=== PATIENT | male | born 1935 | race African-American/Black ===

== ENCOUNTER 2022-06-02 00:32 | Inpatient (IN) | payer MEDICARE, OTHER ==
[2022-06-02] MEDS ORDERED: hydrALAZINE 20 MG/ML VIAL SLOW IVP PRN (01:36)
[2022-06-02] MEDS ORDERED: Ondansetron ODT 4 MG TAB PO PRN (01:52)
[2022-06-02] MEDS ORDERED: Ondansetron PF 4 MG/2 ML Vial IVP PRN (01:52)
[2022-06-02] MEDS ORDERED: Acetaminophen 325 MG TAB PO PRN (01:52)
[2022-06-02] MEDS ORDERED: Acetaminophen 650 MG Suppository PR PRN (01:52)
[2022-06-02] MEDS ORDERED: Azithromycin 500 MG in Sodium Chloride 0.9% 250 ML 250 ML IVPB SCH (04:00)
[2022-06-02 04:54] LABS: Iron Binding Capacity, Total 234 mcg/dL (261-462)
[2022-06-02 04:58] LABS: Troponin I 0.268 ng/mL (< 0.028)
[2022-06-02 05:00] LABS: Anion Gap 15 mmol/L (10-20); BUN (Urea Nitrogen) 13 mg/dL (8.4-25.7); Calc. Creatinine Clearance 36 mL/min (70-130); Calcium 8.8 mg/dL (7.8-10.44); Carbon Dioxide 23 mmol/L (23-31); Chloride 105 mmol/L (98-107); Estimated GFR 59; Glucose 124 mg/dL (83-110); Iron 38 ug/dL (65-175); Iron Binding Capacity, Total 235 mcg/dL (261-462); Potassium 3.4 mmol/L (3.5-5.1); Sodium 140 mmol/L (136-145)
[2022-06-02 05:20] LABS: Ferritin 77.44 ng/mL (22-322)
[2022-06-02 05:56] LABS: Iron 38 ug/dL (65-175)
[2022-06-02 06:28] LABS: Band 4 % (5-11); Eosinophils 1 % (0-10); Hemoglobin 10.1 g/dL (14.0-18.0); Lymphocytes 16 % (21-51); MDiff Complete? YES; Mean Corpuscular HGB CONC 30.9 g/dL (32.0-36.0); Mean Platelet Volume 9.2 fL (7.4-10.4); Monocytes 8 % (0-10); Neutrophil 71 % (42-75); Platelet Count 111 thou/uL (130-400); Platelet Morphology Comment Appears Decreased; RBC Distribution Width 15.2 % (11.5-14.5); Red Blood Cell (RBC) Count 3.17 mill/uL (4.70-6.10); White Blood Cell (WBC) Count 5.1 thou/uL (4.8-10.8)
[2022-06-02] MEDS ORDERED: Cefepime 2 GM in Sodium Chloride 0.9% 100 ML IVPB SCH (08:00)
[2022-06-02] MEDS ORDERED: Losartan 25 MG TAB PO SCH (09:00)
[2022-06-02] MEDS: Enoxaparin Sodium 40 MG/0.4 ML SYRINGE SC SCH (09:28)
[2022-06-02] MEDS: Carvedilol 25 MG TAB PO SCH ×2 (09:29→16:41)
[2022-06-02] MEDS: Gabapentin 300 MG CAP PO SCH ×2 (09:29→20:57)
[2022-06-02] MEDS: Furosemide 100 MG/10 ML VIAL SLOW IVP SCH (09:29)
[2022-06-02] MEDS: hydrALAZINE 25 MG TAB PO SCH ×3 (09:29→20:58)
[2022-06-02] MEDS ORDERED: HYDROcodone/Acetaminophen 5/325 mg Tablet PO PRN (20:05)
[2022-06-02] MEDS: HYDROcodone/Acetaminophen 5/325 mg Tablet PO PRN (20:55)
[2022-06-02] MEDS: Rosuvastatin 10 MG TAB PO SCH (20:57)
[2022-06-03] MEDS: Enoxaparin Sodium 40 MG/0.4 ML SYRINGE SC SCH (08:57)
[2022-06-03] MEDS: Gabapentin 300 MG CAP PO SCH ×2 (08:57→21:36)
[2022-06-03] MEDS: Carvedilol 25 MG TAB PO SCH ×2 (08:57→17:23)
[2022-06-03] MEDS: hydrALAZINE 25 MG TAB PO SCH ×3 (08:58→21:35)
[2022-06-03] MEDS: Sacubitril 49 MG/Valsartan 51 MG TABLET PO SCH ×2 (08:58→21:35)
[2022-06-03] MEDS: HYDROcodone/Acetaminophen 5/325 mg Tablet PO PRN (08:59)
[2022-06-03] MEDS: Furosemide 100 MG/10 ML VIAL SLOW IVP SCH (09:08)
[2022-06-03] MEDS: Aspirin 81 mg Enteric Coated Tablet PO SCH (09:52)
[2022-06-03 10:02] LABS: Anion Gap 16 mmol/L (10-20); BUN (Urea Nitrogen) 15 mg/dL (8.4-25.7); Calc. Creatinine Clearance 30 mL/min (70-130); Calcium 8.4 mg/dL (7.8-10.44); Carbon Dioxide 29 mmol/L (23-31); Chloride 100 mmol/L (98-107); Estimated GFR 47; Glucose 106 mg/dL (83-110); Sodium 142 mmol/L (136-145)
[2022-06-03 10:19] LABS: Potassium 2.9 mmol/L (3.5-5.1)
[2022-06-03] MEDS: Potassium Chloride 20 MEQ TAB PO SCH ×2 (11:27→17:23)
[2022-06-03] MEDS: Furosemide 80 MG TAB PO SCH (13:50)
[2022-06-03] MEDS ORDERED: Amlodipine 10 MG TAB PO SCH (17:15)
[2022-06-03] MEDS: Rosuvastatin 10 MG TAB PO SCH (21:35)
[2022-06-04 03:06] LABS: #Eosinphils 0.1 thou/uL (0.0-0.7); #Lymphocytes 0.7 thou/uL (1.20-3.40); #Monocytes 0.7 thou/uL (0.11-0.59); #Neutrophils 3.7 thou/uL (1.40-6.50); %Basophils 0.7 % (0.0-1.0); %Eosinophils 1.2 % (0.0-10.0); %Lymphocytes 13.6 % (21.0-51.0); %Monocytes 12.9 % (0.0-10.0); %Neutrophils 71.6 % (42.0-75.0); Hemoglobin 9.5 g/dL (14.0-18.0); Mean Corpuscular HGB CONC 31.9 g/dL (32.0-36.0); Mean Corpuscular Hemoglobin 33.1 pg (27.0-31.0); Mean Platelet Volume 7.8 fL (7.4-10.4); Platelet Count 126 thou/uL (130-400); Red Blood Cell (RBC) Count 2.87 mill/uL (4.70-6.10); White Blood Cell (WBC) Count 5.2 thou/uL (4.8-10.8)
[2022-06-04 03:33] LABS: Troponin I 0.192 ng/mL (< 0.028)
[2022-06-04 03:38] LABS: Anion Gap 16 mmol/L (10-20); BUN (Urea Nitrogen) 19 mg/dL (8.4-25.7); Calc. Creatinine Clearance 26 mL/min (70-130); Calcium 8.4 mg/dL (7.8-10.44); Carbon Dioxide 25 mmol/L (23-31); Cardiac Risk 2.8 (Less than 4.5); Chloride 101 mmol/L (98-107); Cholesterol 147 mg/dl (< 200 Desired); Estimated GFR 39; Glucose 120 mg/dL (83-110); HDL Cholesterol 53 mg/dL (>60 Neg Risk); LDL Cholesterol, Calculated 83 mg/dL; Magnesium 1.5 mg/dL (1.6-2.6); Potassium 3.5 mmol/L (3.5-5.1); Sodium 138 mmol/L (136-145); Triglycerides 57 mg/dL (Less than 150)
[2022-06-04] MEDS: Magnesium 2 GM/50 ML(in water) 2 GM in Premix Bag 1 BAG IVPB SCH ×2 (05:20→06:17)
[2022-06-04] MEDS ORDERED: Electrolyte Replacement Protocol FS PRN (06:15)
[2022-06-04] MEDS ORDERED: Potassium Chloride 20 MEQ TAB PO SCH (08:00)
[2022-06-04] MEDS: Gabapentin 300 MG CAP PO SCH ×2 (09:24→21:09)
[2022-06-04] MEDS: Sacubitril 49 MG/Valsartan 51 MG TABLET PO SCH ×2 (09:24→21:08)
[2022-06-04] MEDS: Aspirin 81 mg Enteric Coated Tablet PO SCH (09:25)
[2022-06-04] MEDS: hydrALAZINE 25 MG TAB PO SCH ×3 (09:25→21:08)
[2022-06-04] MEDS: Carvedilol 25 MG TAB PO SCH ×3 (09:25→21:08)
[2022-06-04] MEDS: Magnesium Oxide 400 MG TAB PO SCH ×2 (09:25→12:31)
[2022-06-04] MEDS: Enoxaparin Sodium 30 MG/0.3 ML SYRINGE SC SCH (09:26)
[2022-06-04] MEDS: Furosemide 80 MG TAB PO SCH (09:27)
[2022-06-04] MEDS ORDERED: Rosuvastatin 20 MG TAB PO SCH (21:00)
[2022-06-05] MEDS ORDERED: cefTRIAXone\\ROCEPHIN 1 GM in Sodium Chloride 0.9% 100 ML IVPB SCH (03:00)
[2022-06-05 04:38] LABS: Anion Gap 14 mmol/L (10-20); BUN (Urea Nitrogen) 19 mg/dL (8.4-25.7); Calc. Creatinine Clearance 26 mL/min (70-130); Carbon Dioxide 26 mmol/L (23-31); Chloride 102 mmol/L (98-107); Estimated GFR 35; Glucose 98 mg/dL (83-110); Potassium 3.6 mmol/L (3.5-5.1); Sodium 138 mmol/L (136-145)
[2022-06-05 04:40] LABS: Anisocytosis SLIGHT = 6-15 cells (100X) (0-5/hpf); Eosinophils 5 % (0-10); Hemoglobin 8.7 g/dL (14.0-18.0); Lymphocytes 13 % (21-51); MDiff Complete? YES; Macrocytosis MODERATE=16-30 cells (100X) (0-5/hpf); Mean Corpuscular HGB CONC 31.9 g/dL (32.0-36.0); Mean Corpuscular Hemoglobin 33.5 pg (27.0-31.0); Mean Platelet Volume 8.6 fL (7.4-10.4); Monocytes 7 % (0-10); Neutrophil 75 % (42-75); Ovalocytes SLIGHT = 2-5 cells (100X) (0-1/hpf); Platelet Count 122 thou/uL (130-400); Platelet Morphology Comment Appears Decreased; RBC Distribution Width 14.9 % (11.5-14.5); Red Blood Cell (RBC) Count 2.61 mill/uL (4.70-6.10); White Blood Cell (WBC) Count 4.6 thou/uL (4.8-10.8)
[2022-06-05] MEDS ORDERED: Furosemide 80 MG TAB PO SCH (07:30)
[2022-06-05] MEDS ORDERED: Carvedilol 25 MG TAB PO SCH ×2 (09:30)
[2022-06-05] MEDS: Enoxaparin Sodium 30 MG/0.3 ML SYRINGE SC SCH (09:45)
[2022-06-05] MEDS: Gabapentin 300 MG CAP PO SCH ×2 (09:46→20:52)
[2022-06-05] MEDS: Sacubitril 49 MG/Valsartan 51 MG TABLET PO SCH ×2 (09:46→20:53)
[2022-06-05] MEDS: hydrALAZINE 25 MG TAB PO SCH ×3 (09:46→20:51)
[2022-06-05] MEDS: Aspirin 81 mg Enteric Coated Tablet PO SCH (09:46)
[2022-06-05] MEDS: Carvedilol 25 MG TAB PO SCH ×2 (09:54→17:14)
[2022-06-05] MEDS: HYDROcodone/Acetaminophen 5/325 mg Tablet PO PRN (14:23)
[2022-06-05] MEDS: Rosuvastatin 10 MG TAB PO SCH (20:53)
[2022-06-05] MEDS: Cefdinir 300 MG CAP PO SCH (20:55)
[2022-06-06 05:14] LABS: Anion Gap 12 mmol/L (10-20); BUN (Urea Nitrogen) 24 mg/dL (8.4-25.7); Calc. Creatinine Clearance 21 mL/min (70-130); Carbon Dioxide 30 mmol/L (23-31); Chloride 101 mmol/L (98-107); Estimated GFR 27; Glucose 104 mg/dL (83-110); Potassium 3.8 mmol/L (3.5-5.1); Sodium 139 mmol/L (136-145)
[2022-06-06 06:00] LABS: Band 1 % (5-11); Eosinophils 2 % (0-10); Hemoglobin 8.3 g/dL (14.0-18.0); Hypochromia SLIGHT = 6-15 cells (100X) (0-5/hpf); Lymphocytes 21 % (21-51); MDiff Complete? YES; Macrocytosis SLIGHT = 6-15 cells (100X) (0-5/hpf); Mean Corpuscular HGB CONC 30.8 g/dL (32.0-36.0); Mean Corpuscular Hemoglobin 32.2 pg (27.0-31.0); Mean Platelet Volume 8.1 fL (7.4-10.4); Monocytes 9 % (0-10); Neutrophil 67 % (42-75); Platelet Count 118 thou/uL (130-400); Platelet Morphology Comment Appears Decreased; RBC Distribution Width 14.7 % (11.5-14.5); Red Blood Cell (RBC) Count 2.58 mill/uL (4.70-6.10); White Blood Cell (WBC) Count 4.2 thou/uL (4.8-10.8)
[2022-06-06] MEDS: Carvedilol 25 MG TAB PO SCH ×2 (09:49→16:17)
[2022-06-06] MEDS: hydrALAZINE 25 MG TAB PO SCH ×3 (09:49→21:12)
[2022-06-06] MEDS: Sacubitril 49 MG/Valsartan 51 MG TABLET PO SCH (09:50)
[2022-06-06] MEDS: Aspirin 81 mg Enteric Coated Tablet PO SCH (09:50)
[2022-06-06] MEDS: Gabapentin 300 MG CAP PO SCH ×2 (09:50→21:13)
[2022-06-06] MEDS: Ezetimibe 10 MG TAB PO SCH (09:50)
[2022-06-06] MEDS: Enoxaparin Sodium 30 MG/0.3 ML SYRINGE SC SCH (09:50)
[2022-06-06] MEDS ORDERED: hydrALAZINE 25 MG TAB PO SCH (16:30)
[2022-06-06] MEDS: Rosuvastatin 10 MG TAB PO SCH (21:12)
[2022-06-06] MEDS: Isosorbide Dinitrate 20 MG TAB PO SCH (21:12)
[2022-06-06] MEDS: Cefdinir 300 MG CAP PO SCH (21:12)
[2022-06-07 04:54] LABS: Anion Gap 14 mmol/L (10-20); BUN (Urea Nitrogen) 26 mg/dL (8.4-25.7); Calc. Creatinine Clearance 20 mL/min (70-130); Calcium 7.9 mg/dL (7.8-10.44); Carbon Dioxide 27 mmol/L (23-31); Chloride 100 mmol/L (98-107); Estimated GFR 26; Glucose 103 mg/dL (83-110); Potassium 3.5 mmol/L (3.5-5.1); Sodium 137 mmol/L (136-145)
[2022-06-07 06:05] LABS: Anisocytosis SLIGHT = 6-15 cells (100X) (0-5/hpf); Eosinophils 7 % (0-10); Hemoglobin 7.9 g/dL (14.0-18.0); Hypochromia SLIGHT = 6-15 cells (100X) (0-5/hpf); Lymphocytes 18 % (21-51); MDiff Complete? YES; Macrocytosis SLIGHT = 6-15 cells (100X) (0-5/hpf); Mean Corpuscular HGB CONC 30.7 g/dL (32.0-36.0); Mean Platelet Volume 8.3 fL (7.4-10.4); Monocytes 18 % (0-10); Neutrophil 57 % (42-75); Platelet Count 119 thou/uL (130-400); Platelet Morphology Comment Appears Decreased; Polychromasia SLIGHT = 2-3 cells (100X) (0-2/hpf); RBC Distribution Width 14.4 % (11.5-14.5); Red Blood Cell (RBC) Count 2.45 mill/uL (4.70-6.10); White Blood Cell (WBC) Count 4.3 thou/uL (4.8-10.8)
[2022-06-07] MEDS ORDERED: Potassium Chloride 20 MEQ TAB PO SCH (08:00)
[2022-06-07 08:12] VITALS: BMI 23.6
[2022-06-07] MEDS: Carvedilol 25 MG TAB PO SCH (08:37)
[2022-06-07] MEDS: Aspirin 81 mg Enteric Coated Tablet PO SCH (08:38)
[2022-06-07] MEDS: Enoxaparin Sodium 30 MG/0.3 ML SYRINGE SC SCH (08:38)
[2022-06-07] MEDS: hydrALAZINE 25 MG TAB PO SCH (08:39)
[2022-06-07] MEDS: Isosorbide Dinitrate 20 MG TAB PO SCH (08:39)
[2022-06-07] MEDS: Ezetimibe 10 MG TAB PO SCH (08:39)
[2022-06-07] MEDS: Gabapentin 300 MG CAP PO SCH (08:39)
[2022-06-07] MEDS ORDERED: Sacubitril 49 MG/Valsartan 51 MG TABLET PO SCH (09:00)
[2022-06-07] MEDS ORDERED: Furosemide 20 MG TAB PO SCH (09:45)
[2022-06-07 15:40] VITALS: BP 141/63; TEMP 98.6
[2022-06-08] MEDS ORDERED: Furosemide 40 MG TAB PO SCH (07:30)
[2022-06-08] MEDS ORDERED: Potassium Chloride 20 MEQ TAB PO SCH (08:00)
== END 2022-06-07 17:03 | disposition home or self-care (01) | DRG 291 ==
LOC: 2NO 00:32
PROVIDERS: ADMIT Internal Medicine; ATTEND Internal Medicine
DX: I11.0 Hypertensive heart disease with heart failure (principal); I50.33 Acute on chronic diastolic (congestive) heart failure; N39.0 Urinary tract infection, site not specified; I47.1 Supraventricular tachycardia; E44.0 Moderate protein-calorie malnutrition; N17.9 Acute kidney failure, unspecified; Z20.822 Contact with and (suspected) exposure to COVID-19; I25.10 Atherosclerotic heart disease of native coronary artery without angina pectoris; E87.6 Hypokalemia; D50.9 Iron deficiency anemia, unspecified; R31.0 Gross hematuria; E83.42 Hypomagnesemia; Z95.1 Presence of aortocoronary bypass graft; Z86.73 Personal history of transient ischemic attack (TIA), and cerebral infarction without residual deficits; Z79.899 Other long term (current) drug therapy; Z68.23 Body mass index [BMI] 23.0-23.9, adult
CPT/HCPCS: 36415; 76770; 80048; 80061; 82607; 82728; 83540; 83550; 83735; 84484; 85025; 93306; 93798; 94760; J0360; J0456; J0692; J1650; J1940; J3475; J3490; J7050

== ENCOUNTER 2022-09-03 13:28 | Emergency (ER) | payer OTHER ==
[2022-09-03 14:25] LABS: Hemoglobin 6.5 g/dL (14.0-18.0); Mean Corpuscular HGB CONC 30.1 g/dL (32.0-36.0); Mean Corpuscular Hemoglobin 30.2 pg (27.0-31.0); Mean Platelet Volume 7.2 fL (7.4-10.4); Platelet Count 122 10x3/uL (130-400); RBC Distribution Width 13.8 % (11.5-14.5); Red Blood Cell (RBC) Count 2.15 mill/uL (4.70-6.10); White Blood Cell (WBC) Count 2.9 10x3/uL (4.8-10.8)
[2022-09-03 14:46] LABS: ALT (SGPT) Less than 7 U/L (8-55); AST (SGOT) 15 U/L (5-34); Albumin 3.2 g/dL (3.4-4.8); Alkaline Phosphatase 34 U/L (40-110); Anion Gap 11 mmol/L (10-20); BUN (Urea Nitrogen) 17 mg/dL (8.4-25.7); Bilirubin, Total 0.5 mg/dL (0.2-1.2); Calc. Creatinine Clearance 0 mL/min (70-130); Calcium 8.5 mg/dL (7.8-10.44); Carbon Dioxide 29 mmol/L (23-31); Chloride 102 mmol/L (98-107); Estimated GFR 40; Globulin 2.9 g/dL (2.4-3.5); Glucose 103 mg/dL (83-110); Potassium 3.3 mmol/L (3.5-5.1); Protein, Total 6.1 g/dL (5.8-8.1); Sodium 139 mmol/L (136-145)
[2022-09-03 15:17] LABS: Burr Cells SLIGHT = 2-5 cells (100X) (0-1/hpf); Eosinophils 3 % (0-10); Hypochromia SLIGHT = 6-15 cells (100X) (0-5/hpf); Lymphocytes 29 % (21-51); MDiff Complete? YES; Macrocytosis SLIGHT = 6-15 cells (100X) (0-5/hpf); Monocytes 15 % (0-10); Neutrophil 52 % (42-75); Ovalocytes SLIGHT = 2-5 cells (100X) (0-1/hpf); Platelet Morphology Comment Appears Decreased; Polychromasia SLIGHT = 2-3 cells (100X) (0-2/hpf); Target Cells SLIGHT = 2-5 cells (100X) (0-1/hpf)
[2022-09-03 16:55] LABS: INR-International Normal Ratio 1.5; Iron 24 ug/dL (65-175); Iron Binding Capacity, Total 250 mcg/dL (261-462); Prothrombin Time 18.4 sec (12.0-14.7)
[2022-09-03 16:56] LABS: PTT 37.8 sec (22.9-36.1)
[2022-09-03 21:37] LABS: Hemoglobin 9.1 g/dL (14.0-18.0)
== END 2022-09-03 22:54 | disposition home or self-care (01) ==
LOC: ERS 13:28
DX: D50.0 Iron deficiency anemia secondary to blood loss (chronic) (principal); I11.0 Hypertensive heart disease with heart failure; I50.9 Heart failure, unspecified; Z79.82 Long term (current) use of aspirin; Z79.899 Other long term (current) drug therapy
CPT/HCPCS: 36415; 36430; 80053; 82274; 82728; 83540; 83550; 85025; 85610; 85730; 86850; 86900; 86901; P9016